=== PATIENT | female | born 1970 | race Two or more races ===

== ENCOUNTER 2025-08-08 08:07 | Outpatient (CLI) | payer OTHER ==
[2025-08-08 08:52] LABS: Hematocrit 41.5 % (36.0-46.0); Hemoglobin 14.0 g/dL (12.2-16.2); Mean Corpuscular Hemoglobin 29.2 pg (28.0-32.0); Mean Corpuscular Volume 86.3 fL (80.0-100.0); Nucleated Red Blood Cells % 0.0 %
[2025-08-08 09:18] LABS: Triglycerides 139 mg/dL (< 150)
[2025-08-08 09:20] LABS: Cholesterol 183 mg/dL (< 200); HDL Cholesterol 44 mg/dL (40-59)
[2025-08-08 10:55] LABS: Iron 74.0 ug/dL (50-170)
[2025-08-08 10:58] LABS: Total Iron Binding Capacity 412.0 ug/dL (250-425)
[2025-08-08 11:09] LABS: Follicle Stimulating Hormone 31.7 IU/L (SEE BELOW)
[2025-08-08 11:11] LABS: Ferritin 79.6 ng/mL (10-291)
[2025-08-09 13:07] LABS: Calcitriol(125 di-OH Vit D) 49.6 pg/mL (24.8-81.5)
== END 2025-08-08 17:00 | disposition home or self-care (01) ==
LOC: LAB 08:07
PROVIDERS: ATTEND Internal Medicine Hematology & Oncology
DX: I10 Essential (primary) hypertension (principal); D50.9 Iron deficiency anemia, unspecified; E66.9 Obesity, unspecified; R13.10 Dysphagia, unspecified; G47.30 Sleep apnea, unspecified
CPT/HCPCS: 36415; 80061; 82607; 82652; 82670; 82672; 82728; 82746; 83001; 83002; 83036; 83540; 83550; 83735; 84443; 85025